=== PATIENT | male | born 1995 | race Caucasian/White ===

== ENCOUNTER 2019-10-01 21:21 | Emergency (ER) | payer OTHER ==
--- NOTE | 2019-10-01 21:55 | RADIOLOGY REPORT (SQ) ---
EXAM DESCRIPTION: Single frontal view of the chest. CLINICAL HISTORY: 23 years Male, SOB COMPARISON: None. FINDINGS: Cardiomediastinal silhouette is not enlarged. Mild hyperinflation. No suspicious acute lung pleural bone abnormalities. IMPRESSION: Mild hyperinflation without obvious acute findings.
[2019-10-01 21:58] LABS: ABSOLUTE BASOPHILS # (AUTO) 0.1 10^3/uL (0.0-0.2); ABSOLUTE EOSINOPHILS # (AUTO) 0.1 10^3/uL (0.0-0.6); ABSOLUTE LYMPHOCYTES (AUTO) 2.4 10^3/uL (0.5-4.7); ABSOLUTE MONOCYTES (AUTO) 0.6 10^3/uL (0.1-1.4); BASOPHILS % (AUTO) 0.7 % (0-2); EOSINOPHILS % (AUTO) 0.7 % (0-6); HEMATOCRIT 43.6 % (37.9-51.0); HEMOGLOBIN 15.2 g/dL (13.5-17.0); LYMPHOCYTES % (AUTO) 29.5 % (13-45); MEAN CORPUSCULAR HEMOGLOBIN 29.6 pg (27.0-33.4); MEAN CORPUSCULAR HGB CONC 34.7 g/dL (32.0-36.0); MEAN CORPUSCULAR VOLUME 85 fl (80-97); MONOCYTES % (AUTO) 7.1 % (3-13); PLATELET COUNT 236 10^3/uL (150-450); RED BLOOD COUNT 5.12 10^6/uL (4.35-5.55); RED CELL DISTRIBUTION WIDTH 12.8 % (11.5-14.0); TOTAL CELLS COUNTED % (AUTO) 100 %; WHITE BLOOD COUNT 8.1 10^3/uL (4.0-10.5)
[2019-10-01 22:12] LABS: ANION GAP 10 (5-19); BLOOD UREA NITROGEN 13 mg/dL (7-20); CALCIUM 9.5 mg/dL (8.4-10.2); CARBON DIOXIDE 27 mmol/L (22-30); CHLORIDE 101 mmol/L (98-107); GLUCOSE 102 mg/dL (75-110); POTASSIUM 3.3 mmol/L (3.6-5.0)
--- NOTE | 2019-10-01 22:32 | ER Document Report ---
ED General - General Chief Complaint: Shortness Of Breath Stated Complaint: DIFFICULTY BREATHING,HEAVINESS IN CHEST,SINUS DRIP Time Seen by Provider: 10/01/19 21:47 Mode of Arrival: Medic Information source: Patient TRAVEL OUTSIDE OF THE [place] IN LAST 30 DAYS: No - HPI Onset: This evening Onset/Duration: Sudden Quality of pain: Pressure Severity: Moderate Pain Level: 3 Associated symptoms: Shortness of breath Exacerbated by: Denies Relieved by: Denies Similar symptoms previously: No Recently seen / treated by doctor: No Notes: 23 year old male with no significant PMH here for sudden onset of chest pain and shortness of breath which started about 2.5 hours prior to ER arrival. The patient felt like he couldn't breath so he had his call EMS. The patient has never had chest pain or shortness of breath before. The patient denies recent fevers, chills, sweats, nausea, vomiting, productive cough. The patient is under a fair amount of stress since his wedding was postponed due to COVID19 and since he is going to be moving due to his job in the . - Related Data Allergies/Adverse Reactions: No Known Allergies Allergy (Verified 10/01/19 21:27) Past Medical History - General Information source: Patient - Social History Smoking Status: Never Smoker Frequency of alcohol use: Occasional Drug Abuse: None Lives with: Spouse/Significant other Family History: Reviewed & Not Pertinent Patient has suicidal ideation: No Patient has homicidal ideation: No Review of Systems - Review of Systems Constitutional: No symptoms reported EENT: No symptoms reported Cardiovascular: Chest pain Respiratory: Short of breath Gastrointestinal: No symptoms reported Genitourinary: No symptoms reported Male Genitourinary: No symptoms reported Musculoskeletal: No symptoms reported Skin: No symptoms reported Hematologic/Lymphatic: No symptoms reported Neurological/Psychological: No symptoms reported -: Yes All other systems reviewed and negative Physical Exam - Vital signs Vitals: Temp Pulse Resp BP 97.8 F 94 18 150/88 H 10/01/19 21:23 10/01/19 21:23 10/01/19 21:23 10/01/19 21:23 - Notes Notes: GENERAL: Well-appearing, well-nourished and in no acute distress. HEAD: Atraumatic, normocephalic. EYES: Pupils equal round and reactive to light, extraocular movements intact, sclera anicteric, conjunctiva are normal. ENT: Nares patent, oropharynx clear without exudates. Moist mucous membranes. NECK: Normal range of motion, supple without lymphadenopathy or JVD. LUNGS: Breath sounds clear to auscultation bilaterally and equal. No wheezes rales or rhonchi. HEART: Regular rate and rhythm without murmurs, rubs or gallops. ABDOMEN: Soft, nontender, normoactive bowel sounds. No guarding, no rebound. No masses appreciated. EXTREMITIES: Normal range of motion, no pitting or edema. No clubbing or cyanosis. NEUROLOGICAL: Cranial nerves II through XII grossly intact. Normal speech, normal gait. PSYCH: Normal mood, normal affect. SKIN: Warm, Dry, normal turgor, no rashes or lesions noted. 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 Patient is low risk for PE or ACS. Patient's EKG and Chest Xray unremarkable and his labs are all within normal limits (including a Trop and D- Dimer). Patient is safe for outpatient follow up. Patient may have had a panic attack. Patient ambulated with a pulse ox and remained 100% on RA the whole time. - Vital Signs Vital signs: Temp Pulse Resp BP Pulse Ox 97.8 F 94 18 150/88 H 10/01/19 21:23 10/01/19 21:23 10/01/19 21:23 10/01/19 21:23 - Laboratory Result Diagrams: 10/01/19 21:30 10/01/19 21:30 Laboratory results interpreted by me: 10/01/19 21:30 Potassium 3.3 L - Diagnostic Test Radiology reviewed: Image reviewed, Reports reviewed - EKG Interpretation by Me EKG shows normal: Sinus rhythm, [place], Intervals, QRS Complexes, ST-T Waves Rate: Normal Rhythm: NSR Discharge - Discharge Clinical Impression: Shortness of breath Chest pain Qualifiers: Chest pain type: unspecified Qualified Code(s): R07.9 - Chest pain, unspecified Condition: Stable Disposition: HOME, SELF-CARE Instructions: Chest Wall Pain ([facility]), Dyspnea, Nonspecific ([facility]) Additional Instructions: You had a chest xray, EKG, and blood work (CBC, BMP, Troponin, and D-Dimer) which was all within normal limits. Your oxygen level was 100% when ambulating in the ER. Return to an ER for trouble breathing or if you are worse. Use tylenol and motrin for any chest pains. Follow up with your primary care doctor or one of the primary care doctors listed in your paperwork.
[2019-10-01 23:50] VITALS: BP 116/83
--- NOTE | 2019-10-02 07:31 | EKG REPORT ---
SEVERITY:- NORMAL ECG - SINUS RHYTHM : Confirmed by: Elpidio Zimmerman MD 02-Oct-2019 07:30:40
== END 2019-10-01 23:40 | disposition home or self-care (01) ==
LOC: ER 21:21
DX: R06.02 Shortness of breath (principal); R07.9 Chest pain, unspecified
CPT/HCPCS: 36415; 71045; 80048; 84484; 85025; 85379; 93005; 93010; 99285